=== PATIENT | female | born 1990 | race Caucasian/White ===

== ENCOUNTER → 2020-02-23 | Outpatient (CLI) | payer BC, SELFPAY | END | disposition home or self-care (01) | LOC: LABSPEC 13:50 | PROVIDERS: PCP Family Medicine; Referring Provider Family Medicine; Visit Provider Family Medicine | DX: Z20.828 Contact with and (suspected) exposure to other viral communicable diseases (principal); J06.9 Acute upper respiratory infection, unspecified | CPT/HCPCS: 87633; 87635; U0003 ==

== ENCOUNTER → 2020-09-29 10:04 | Outpatient (CLI) | payer OTHER, SELFPAY ==
[2020-09-29 12:06] LABS: Erythrocyte Sedimentation Rate 5 mm/hr (0-30); Hematocrit 42.9 % (37-47); Hemoglobin 14.1 g/dL (12.0-15.0); Mean Corp Hgb Conc 32.9 g/dL (32-36); Mean Corpuscular Hgb 30.5 pg (27.0-32.0); Mean Corpuscular Volume 92.7 fL (81-99); Mean Platelet Vol. 9.7 fl (6.2-12.0); Platelet Count 263 K/mm3 (150-450); RBC Distribution Width CV 11.9 % (11.6-14.6); RBC Distribution Width SD 40.6 fl (35.1-43.9); Red Blood Count 4.63 M/mm3 (4.2-5.4); White Blood Count 4.8 K/mm3 (4.4-11.0)
[2020-09-29 12:26] LABS: AST(SGOT) 26 U/L (15-37); Alanine Aminotransfer ALT/SGPT 38 U/L (13-56); Albumin, Serum 3.7 g/dL (3.2-5.0); Alkaline Phosphatase 51 U/L (45-117); Anion Gap 5 (5-15); BUN 17 mg/dL (7-18); BUN/Creat Ratio 19.4 RATIO (10-20); Calcium,Total 8.9 mg/dL (8.5-10.1); Chloride 105 mmol/L (98-107); Cholesterol 166 mg/dL (200); Creatinine, Serum 0.88 mg/dL (0.55-1.02); EST Glomerular Filtration Rate 79 mL/min (>60); Est Glom Filt Rate - Afr Amer 96 mL/min (>60); Globulin 3.7 g/dL (2.2-4.2); Glucose 87 mg/dL (74-106); High Density Lipoprotein 60 mg/dL; Potassium 4.2 mmol/L (3.5-5.1); Protein, Total 7.4 g/dL (6.4-8.2); Sodium Level 139 mmol/L (136-145); Thyroid Stim Hormone (TSH) 1.56 uIU/mL (0.358-3.74); Triglycerides 68 mg/dL; Very Low Density Lipoprotein 14 mg/dL (5-40)
[2020-09-29 12:30] LABS: Vitamin B12 361 pg/mL (211-911); Vitamin D,25 Hydroxy 40.3 ng/mL
== END ==
PROVIDERS: PCP Family Medicine; Referring Provider Family Medicine; Visit Provider Family Medicine
DX: R53.83 Other fatigue (principal); Z13.220 Encounter for screening for lipoid disorders
CPT/HCPCS: 36415; 80053; 80061; 82306; 82533; 82607; 84443; 85027; 85652

== ENCOUNTER → 2021-11-15 | Outpatient (CLI) | payer OTHER, SELFPAY ==
--- NOTE | 2021-11-15 11:43 | RAD_ITS ---
EXAM: XR CERVICAL SPINE, 6 OR MORE VIEWS CLINICAL INDICATION: NECK PAIN TECHNIQUE: Frontal, lateral, oblique and flexion/extension views of the cervical spine. This report was created using [employer] report generation technology. COMPARISON: None. FINDINGS: VERTEBRAE: Unremarkable. Preserved vertebral body height. No acute fracture. No spondylolisthesis. Preservation of the normal cervical lordosis. No significant facet arthropathy. DISC SPACES: Oblique views show bony neural foraminal narrowing at C5-6 bilaterally. SOFT TISSUES: Unremarkable. No prevertebral soft tissue widening. LUNG APICES: Clear. RAD/Cerv Spine Obl/Flex/Ext Comp IMPRESSION: No acute osseous abnormalities. There are degenerative changes with bony neural foraminal narrowing at C5-6. Electronically Signed: Adama Quiroga MD at 3:07 EDT ,
== END | disposition home or self-care (01) ==
LOC: MTRAD 11:41
PROVIDERS: PCP Family Medicine; Referring Provider Family Medicine; Visit Provider Family Medicine
DX: M48.02 Spinal stenosis, cervical region (principal); R51.9 Headache, unspecified
CPT/HCPCS: 72052

== ENCOUNTER → 2022-04-25 | Outpatient (CLI) | payer OTHER, SELFPAY ==
[2022-04-25 17:28] LABS: hCG Titer Quant., Serum 22 mIU/mL (1-3)
== END | disposition home or self-care (01) ==
LOC: LAB 15:59
PROVIDERS: PCP Family Medicine; Visit Provider Advanced Practice Midwife
DX: O20.0 Threatened abortion (principal); Z3A.00 Weeks of gestation of pregnancy not specified
CPT/HCPCS: 36415; 84702; 86900; 86901

== ENCOUNTER → 2022-04-27 | Outpatient (CLI) | payer OTHER, SELFPAY ==
[2022-04-27 10:07] LABS: hCG Titer Quant., Serum 41 mIU/mL (1-3)
== END | disposition home or self-care (01) ==
LOC: LAB 09:33
PROVIDERS: PCP Family Medicine; Referring Provider Advanced Practice Midwife; Visit Provider Advanced Practice Midwife
DX: O20.0 Threatened abortion (principal); Z3A.00 Weeks of gestation of pregnancy not specified
CPT/HCPCS: 36415; 84702

== ENCOUNTER → 2022-04-30 | Outpatient (CLI) | payer OTHER, SELFPAY ==
[2022-04-30 09:43] LABS: hCG Titer Quant., Serum 84 mIU/mL (1-3)
== END | disposition home or self-care (01) ==
LOC: LAB 08:02
PROVIDERS: PCP Family Medicine; Referring Provider Advanced Practice Midwife; Visit Provider Advanced Practice Midwife
DX: O20.0 Threatened abortion (principal); Z3A.00 Weeks of gestation of pregnancy not specified
CPT/HCPCS: 36415; 84702

== ENCOUNTER → 2022-05-02 | Outpatient (CLI) | payer OTHER, SELFPAY ==
[2022-05-02 10:46] LABS: hCG Titer Quant., Serum 95 mIU/mL (1-3)
== END | disposition home or self-care (01) ==
PROVIDERS: PCP Family Medicine; Visit Provider Advanced Practice Midwife
DX: O20.0 Threatened abortion (principal); Z3A.00 Weeks of gestation of pregnancy not specified
CPT/HCPCS: 36415; 84702

== ENCOUNTER → 2022-05-04 | Outpatient (CLI) | payer OTHER, SELFPAY ==
[2022-05-04 12:51] LABS: Absolute Neutrophil Count 6.1 X10^3/uL (2.0-7.7); Basophil# 0.04 X10^3/uL; Basophil% 0.4 % (0-1); Eosinophil# 0.21 X10^3/uL; Eosinophils% 2.3 % (0-5); Hematocrit 41.3 % (37-47); Hemoglobin 13.6 g/dL (12.0-15.0); Mean Corp Hgb Conc 32.9 g/dL (32-36); Mean Corpuscular Hgb 30.6 pg (27.0-32.0); Mean Corpuscular Volume 92.8 fL (81-99); Mean Platelet Vol. 9.4 fl (6.2-12.0); Monocyte# 0.85 X10^3/uL; Monocyte% 9.4 % (0-10); NRBC Flagged by Analyzer 0 % (0-5); Neutrophil # 6.09 X10^3/uL (2.7-7.7); Neutrophil % 67.6 % (47-70); Platelet Count 204 K/mm3 (150-450); RBC Distribution Width CV 12.1 % (11.6-14.6); RBC Distribution Width SD 41.2 fl (35.1-43.9); Red Blood Count 4.45 M/mm3 (4.2-5.4)
[2022-05-04 13:29] LABS: AST(SGOT) 18 U/L (15-37); Alanine Aminotransfer ALT/SGPT 25 U/L (13-56); Alkaline Phosphatase 61 U/L (45-117); Anion Gap 4 (5-15); BUN 11 mg/dL (7-18); BUN/Creat Ratio 12.9 RATIO (10-20); Bilirubin, Direct 0.17 mg/dL (0.00-0.30); Calcium,Total 9.2 mg/dL (8.5-10.1); Chloride 106 mmol/L (98-107); Creatinine, Serum 0.85 mg/dL (0.55-1.02); EST Glomerular Filtration Rate 81 mL/min (>60); Est Glom Filt Rate - Afr Amer 98 mL/min (>60); Globulin 3.8 g/dL (2.2-4.2); Glucose 95 mg/dL (74-106); Potassium 3.9 mmol/L (3.5-5.1); Protein, Total 7.8 g/dL (6.4-8.2); Sodium Level 138 mmol/L (136-145)
[2022-05-04 13:32] LABS: hCG Titer Quant., Serum 101 mIU/mL (1-3)
== END | disposition home or self-care (01) ==
LOC: LAB 12:28
PROVIDERS: PCP Family Medicine; Referring Provider Obstetrics & Gynecology; Visit Provider Obstetrics & Gynecology
DX: Z34.90 Encounter for supervision of normal pregnancy, unspecified, unspecified trimester (principal)
CPT/HCPCS: 36415; 80048; 80076; 84702; 85025

== ENCOUNTER 2022-05-14 09:25 | Outpatient (RCR) | payer OTHER, SELFPAY ==
[2022-05-07 12:05] LABS: hCG Titer Quant., Serum 107 mIU/mL (1-3)
[2022-05-11 10:32] LABS: hCG Titer Quant., Serum 36 mIU/mL (1-3)
[2022-05-14 10:57] LABS: hCG Titer Quant., Serum 5 mIU/mL (1-3)
== END 2022-05-14 18:00 | disposition home or self-care (01) ==
LOC: LAB 09:25
PROVIDERS: PCP Family Medicine; Visit Provider Obstetrics & Gynecology
DX: O09.90 Supervision of high risk pregnancy, unspecified, unspecified trimester (principal); Z3A.00 Weeks of gestation of pregnancy not specified
CPT/HCPCS: 36415; 84702

== ENCOUNTER → 2022-11-12 | Outpatient (CLI) | payer OTHER, SELFPAY ==
--- NOTE | 2022-11-12 14:12 | RAD_ITS ---
INDICATION: PAIN EXAMINATION/TECHNIQUE: X-RAY - XR Abdomen 1 View COMPARISON: None FINDINGS: BOWEL GAS PATTERN: Non-obstructive. No bowel or stomach distention. There is a paucity of bowel gas. FREE AIR: Not assessed on a single supine view. ORGANOMEGALY: Not seen. CALCIFICATIONS: No abnormal calcifications observed. LOWER CHEST: No acute pathology. BONES AND SOFT TISSUES: Mild lumbar levocurvature. RAD/Abdomen Single View IMPRESSION: Non-obstructive bowel gas pattern. Findings suggest constipation. Electronically Signed: Ion Anthony MD at 23:52 EDT ,
[2022-11-12 16:12] LABS: CRP < 2.90 mg/L (0.0-3.0)
[2022-11-14 15:13] LABS: Endomysial Antibody IgA Negative (Negative); Immunoglobulin A 283 mg/dL (87-352); t-Transglutaminase IgA <2 U/mL (0-3)
== END | disposition home or self-care (01) ==
PROVIDERS: PCP Family Medicine; Referring Provider Internal Medicine Gastroenterology; Visit Provider Internal Medicine Gastroenterology
DX: R10.9 Unspecified abdominal pain (principal)
CPT/HCPCS: 36415; 74018; 82784; 83516; 86140; 86255

== ENCOUNTER → 2022-11-13 | Outpatient (CLI) | payer OTHER, SELFPAY ==
[2022-11-16 14:10] LABS: Calprotectin, Stool <5 ug/g (0-120)
== END | disposition home or self-care (01) ==
LOC: MTLAB 11:09
PROVIDERS: PCP Family Medicine; Referring Provider Internal Medicine Gastroenterology; Visit Provider Internal Medicine Gastroenterology
DX: R10.9 Unspecified abdominal pain (principal)
CPT/HCPCS: 83993

== ENCOUNTER → 2023-01-16 | Outpatient (CLI) | payer OTHER, SELFPAY ==
--- NOTE | 2023-01-16 08:30 | MRI_ITS ---
HISTORY: Cervicalgia, neck pain, and migraines since [facility] 10/2021. TECHNIQUE: Multiplanar and multisequence MR images of the cervical spine were obtained without contrast. 180 images. COMPARISON: [place] [id number]. FINDINGS: VERTEBRAE: Vertebral body heights maintained. Degenerative bone marrow endplate changes of C5-6. VERTEBRAL ALIGNMENT: Mild straightening of the cervical lordosis without significant anterior or posterior subluxation. SPINAL CORD: Cervical cord signal and morphology within normal limits. SOFT TISSUES: No prevertebral fluid collection. INTERVERTEBRAL DISCS: C2-3, C3-4: No significant posterior disc protrusion, central canal stenosis, or foraminal narrowing. C4-5: Mild disc bulge resulting in minimal narrowing of the thecal sac. No significant foraminal narrowing. C5-6: Moderate posterior disc bulge osteophyte complex with uncovertebral and facet arthropathy resulting in ventral cord abutment, moderate central canal stenosis, and moderate bilateral foraminal narrowing. C6-7: Mild posterior disc protrusion resulting in minimal narrowing of the thecal sac. No significant foraminal narrowing. C7-T1: No significant posterior disc protrusion, central canal stenosis, or foraminal narrowing. MRI/Spine Cervical (Routine) IMPRESSION: Moderate degenerative disease of C5-6 resulting in mild abutment of the spinal cord, moderate spinal canal stenosis, and moderate bilateral foraminal narrowing. Mild disc bulges of C4-5 and C6-7 without significant spinal canal stenosis. Electronically Signed: Jil Capone MD at 15:19 EDT ,
== END | disposition home or self-care (01) ==
PROVIDERS: PCP Family Medicine; Referring Provider Family Medicine; Visit Provider Family Medicine
DX: M54.2 Cervicalgia (principal)
CPT/HCPCS: 72141

== ENCOUNTER 2023-01-29 09:30 | Outpatient (RCR) | payer OTHER, SELFPAY ==
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
== END 2023-01-29 19:00 | disposition home or self-care (01) ==
LOC: PT 09:30
PROVIDERS: PCP Family Medicine; Referring Provider Family Medicine; Visit Provider Family Medicine
DX: M54.12 Radiculopathy, cervical region (principal)
CPT/HCPCS: 97012; 97035; 97110; 97140; 97162

== ENCOUNTER 2023-04-23 17:33 | Observation (INO) | payer OTHER, SELFPAY ==
[2023-04-23 17:33] VITALS: BP 139/91; PULSE 68; RESP 16; TEMP 36.6; O2SAT 98; BMI 24.7
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
[2023-04-23 18:32] LABS: Absolute Lymphocyte Count 1.74 X10^3/uL (0.83-4.51); Absolute Neutrophil Count 4.4 X10^3/uL (2.0-7.7); Basophil# 0.03 X10^3/uL; Basophil% 0.5 % (0-1); Eosinophil# 0.06 X10^3/uL; Eosinophils% 0.9 % (0-5); Hematocrit 40.7 % (37-47); Hemoglobin 13.3 g/dL (12.0-15.0); Lymphocyte # 1.74 X10^3/ul (0.83-4.51); Lymphocyte % 26.2 % (19-41); Mean Corp Hgb Conc 32.7 g/dL (32-36); Mean Corpuscular Volume 91.7 fL (81-99); Mean Platelet Vol. 9.4 fl (6.2-12.0); Monocyte# 0.37 X10^3/uL; Monocyte% 5.6 % (0-10); NRBC Flagged by Analyzer 0 % (0-5); Neutrophil # 4.42 X10^3/uL (2.7-7.7); Neutrophil % 66.5 % (47-70); Platelet Count 244 K/mm3 (150-450); RBC Distribution Width CV 11.9 % (11.6-14.6); Red Blood Count 4.44 M/mm3 (4.2-5.4); White Blood Count 6.6 K/mm3 (4.4-11.0)
--- OUTSIDE RECORDS SUMMARY | 2023-04-23 18:43 | XMS RPT_ITS | CCD ---
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 10/25/2022 10/25/2023 1 1 Additional Source Comments INFORMATION SOURCE (unrecogn ized section and content) DATE CREATED AUTHOR AUTHOR'S ORGANIZ ATION 11/12/2021 [facility] ([place]) DATE CREATED AUTHOR AUTHOR'S ORGANIZ ATION 02/26/2023 [facility] ([place]) DATE CREATED AUTHOR AUTHOR'S ORGANIZ ATION 04/19/2023 [facility] Source Comments (unrecognize d section and content) In the event this informatio n is protected by the Federal Confidentiality of Alcohol and Drug Abuse Patient Records regulations: The Federal rules restrict any use of the information to criminally investigate or prosecute any alcohol or drug abuse patient.[facility] the event this information is protected by the Federal Confidentiality of Alcohol and Drug Abuse Patient Records regulations: The Federal rules restrict any use of the information to criminally investigate or prosecute any alcohol or drug abuse patient.[facility] the event this information is protected by the Federal Confidentiality of Alcohol and Drug Abuse Patient Records regulations: The Federal rules restrict any use of the information to criminally investigate or prosecute any alcohol or drug abuse patient.[facility] Hospital[facility] the event this information is protected by the Federal Confidentiality of Alcohol and Drug Abuse Patient Records regulations: The Federal rules restrict any use of the information to criminally investigate or prosecute any alcohol or drug abuse patient.[facility] HospitalIn the event this information is protected by the Federal Confidentiality of Alcohol and Drug Abuse Patient Records regulations: The Federal rules restrict any use of the information to criminally investigate or prosecute any alcohol or drug abuse patient.[facility] HospitalIn the event this information is protected by the Federal Confidentiality of Alcohol and Drug Abuse Patient Records regulations: The Federal rules restrict any use of the information to criminally investigate or prosecute any alcohol or drug abuse patient.[facility] HospitalIn the event this information is protected by the Federal Confidentiality of Alcohol and Drug Abuse Patient Records regulations: The Federal rules restrict any use of the information to criminally investigate or prosecute any alcohol or drug abuse patient.[facility] Hospital[facility] the event this information is protected by the Federal Confidentiality of Alcohol and Drug Abuse Patient Records regulations: The Federal rules restrict any use of the information to criminally investigate or prosecute any alcohol or drug abuse patient.[facility] Hospital[facility] the event this information is protected by the Federal Confidentiality of Alcohol and Drug Abuse Patient Records regulations: The Federal rules restrict any use of the information to criminally investigate or prosecute any alcohol or drug abuse patient.[facility] Hospital[facility] the event this information is protected by the Federal Confidentiality of Alcohol and Drug Abuse Patient Records regulations: The Federal rules restrict any use of the information to criminally investigate or prosecute any alcohol or drug abuse patient.[facility] HospitalIn the event this information is protected by the Federal Confidentiality of Alcohol and Drug Abuse Patient Records regulations: The Federal rules restrict any use of the information to criminally investigate or prosecute any alcohol or drug abuse patient.[facility] HospitalIn the event this information is protected by the Federal Confidentiality of Alcohol and Drug Abuse Patient Records regulations: The Federal rules restrict any use of the information to criminally investigate or prosecute any alcohol or drug abuse patient.[facility] HospitalIn the event this information is protected by the Federal Confidentiality of Alcohol and Drug Abuse Patient Records regulations: The Federal rules restrict any use of the information to criminally investigate or prosecute any alcohol or drug abuse patient.[facility] HospitalIn the event this information is protected by the Federal Confidentiality of Alcohol and Drug Abuse Patient Records regulations: The Federal rules restrict any use of the information to criminally investigate or prosecute any alcohol or drug abuse patient.[facility] HospitalIn the event this information is protected by the Federal Confidentiality of Alcohol and Drug Abuse Patient Records regulations: The Federal rules restrict any use of the information to criminally investigate or prosecute any alcohol or drug abuse patient.[facility] HospitalIn the event this information is protected by the Federal Confidentiality of Alcohol and Drug Abuse Patient Records regulations: The Federal rules restrict any use of the information to criminally investigate or prosecute any alcohol or drug abuse patient.[facility] HospitalIn the event this information is protected by the Federal Confidentiality of Alcohol and Drug Abuse Patient Records regulations: The Federal rules restrict any use of the information to criminally investigate or prosecute any alcohol or drug abuse patient.[facility] HospitalIn the event this information is protected by the Federal Confidentiality of Alcohol and Drug Abuse Patient Records regulations: The Federal rules restrict any use of the information to criminally investigate or prosecute any alcohol or drug abuse patient.[facility] HospitalIn the event this information is protected by the Federal Confidentiality of Alcohol and Drug Abuse Patient Records regulations: The Federal rules restrict any use of the information to criminally investigate or prosecute any alcohol or drug abuse patient.[facility] HospitalIn the event this information is protected by the Federal Confidentiality of Alcohol and Drug Abuse Patient Records regulations: The Federal rules restrict any use of the information to criminally investigate or prosecute any alcohol or drug abuse patient.[facility] HospitalIn the event this information is protected by the Federal Confidentiality of Alcohol and Drug Abuse Patient Records regulations: The Federal rules restrict any use of the information to criminally investigate or prosecute any alcohol or drug abuse patient.[facility] HospitalIn the event this information is protected by the Federal Confidentiality of Alcohol and Drug Abuse Patient Records regulations: The Federal rules restrict any use of the information to criminally investigate or prosecute any alcohol or drug abuse patient.[facility] HospitalIn the event this information is protected by the Federal Confidentiality of Alcohol and Drug Abuse Patient Records regulations: The Federal rules restrict any use of the information to criminally investigate or prosecute any alcohol or drug abuse patient.[facility] Care Teams (unrecognized sec tion and content) [employer] Calenderer Relationship Specialty Start Date End Date Ann Hooper MD [address] [facility] [place] [address] PCP - General Family Medicine 05/28/16 N[employer] Calenderer Relationship Specialty Start Date End Date Ann Hooper MD [address] [facility] [place] [address] PCP - General Family Medicine 05/28/16 N[employer] Calenderer Relationship Specialty Start Date End Date Ann Hooper MD [address] [facility] [place] [address] PCP - General Family Medicine 05/28/16 Narrow [employer]ric Calenderer Relationship Specialty Start Date End Date Ann Hooper MD [address] [facility] [address] PCP - General Family Medicine 05/28/16 Narrow [employer]ric Calenderer Relationship Specialty Start Date End Date Ann Hooper MD [address] [place] [address] PCP - General Family Medicine 05/28/16 N[employer] Calenderer Relationship Specialty Start Date End Date Ann Hooper MD [address] [place] [address] PCP - General Family Medicine 05/28/16 N[employer] Calenderer Relationship Specialty Start Date End Date Ann Hooper MD [address] [place] [address] PCP - General Family Medicine 05/28/16 N[employer]ric Calenderer Relationship Specialty Start Date End Date Ann Hooper MD [address] [place] [address] PCP - General Family Medicine 05/28/16 N[employer]ric Calenderer Relationship Specialty Start Date End Date Ann Hooper MD [address] [place] [address] PCP - General Family Medicine 05/28/16 Narrow [employer] Calenderer Relationship Specialty Start Date End Date Ann Hooper MD [address] [place] [address] PCP - General Family Medicine 05/28/16 N[employer] Calenderer Relationship Specialty Start Date End Date Ann Hooper MD [address] [place] [address] PCP - General Family Medicine 05/28/16 Narrow [employer]ric Calenderer Relationship Specialty Start Date End Date Ann Hooper MD [address] [place] [address] PCP - General Family Medicine 05/28/16 N[employer] Calenderer Relationship Specialty Start Date End Date Ann Hooper MD [address] [place] [address] PCP - General Family Medicine 05/28/16 N[employer] Calenderer Relationship Specialty Start Date End Date Ann Hooper MD [address] [place] [address] PCP - General Family Medicine 05/28/16 Simeon Tatum MD [address] [place] [address] Referring Anesthesiology 02/20/23 Narrow Fabric Calenderer Relationship Specialty Start Date End Date Ann Hooper MD [facility] [place] [address] PCP - General Family Medicine 05/28/16 Simeon Tatum MD [address] [place] [address] Referring Anesthesiology 02/20/23 Narrow Fabric Calenderer Relationship Specialty Start Date End Date Ann Hooper MD [address] [place] [address] PCP - General Family Medicine 05/28/16 Simeon Tatum MD [address] [place] [address] Referring Anesthesiology 02/20/23 Care Team (unrecognized sect ion and content) Care Team Personnel Name: ANN HOOPER MD Member Role: Primary Care Physician Address: Address: [facility] [address] [address]- Care Team Related Persons Name: EDIN URBANO Address: Home [address] 04/23 [address] Reason for Visit (unrecogniz ed section and content) Reason Comments Vaginal Bleeding Reason Comments TRAIN GATEMAN Ultrasound Reason Comments Lab Orders Reason Onset Date Comments Follow Up Methotrexate Injection 05/04/2022 Reason Comments Reason Onset Date Comments Methotrexate Injection 05/07/2022 Reason Comments Results Reason Comments Follow Up Reason Comments Medication Problem Reason Comments Menstrual Problem Reason Comments Family History Of Cancer Specialty Diagnoses / Procedures Referred By Priscila t Referred To Contact Diagnoses Family history of breast cancer Procedures CONSULT TO MEDICAL GENETICS - CANCER MEDICAL GENETICS COUNSELING EACH 30 MINUTES Lois Akers MD [address] [place] [address] [facility] [place] [address] Referral ID Status Reason Start Date Expiration Date V isits Requested Visits Authorized [id number] Closed PCP Requested Referral Auto-Generated Referral 10/25/2022 10/25/2023 1 1 Reason Comments Referral Request Reason Comments New Patient Headache FOR RECORDS PERTAINING TO PATIENTS WHO ARE OR HAVE BEEN ENROLLED IN A CHEMICAL DEPENDENCY/SUBSTANCEABUSE PROGRAM, SOME INFORMATION MAY BE OMITTED. This clinical summary was aggregated from multiple sources. Caution should be exercised in using it in the provision of clinical care. This summary normalizes information from multiple sources, and as a consequence, information in this document may materially change the coding, format and clinical context of patient data. In addition, data may be omitted in some cases. CLINICAL DECISIONS SHOULD BE BASED ON THE PRIMARY CLINICAL RECORDS. [employer] [facility]. provides no warranty or guarantee of the accuracy or completeness of information in this document.
[2023-04-23 19:01] LABS: Anion Gap 2 (5-15); BUN 13 mg/dL (7-18); BUN/Creat Ratio 11.5 RATIO (10-20); Chloride 108 mmol/L (98-107); Creatinine, Serum 1.13 mg/dL (0.55-1.02); EST Glomerular Filtration Rate 58 mL/min (>60); Est Glom Filt Rate - Afr Amer 71 mL/min (>60); Estimated Creatinine Clearance 62.53 ml/min; Glucose 98 mg/dL (74-106); Potassium 3.7 mmol/L (3.5-5.1); Sodium Level 140 mmol/L (136-145); Troponin-I HS 5 pg/mL (3.0-54.0)
[2023-04-23] MEDS: 0.9% Normal Saline (1000mL) 1,000 ML 999 ML IV (19:27)
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
--- OUTSIDE RECORDS SUMMARY | 2023-04-23 20:34 | XMS RPT_ITS | CCD ---
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 Amenorrhea Age at Menarche: Age at First : Age at Menopause: Clerical Support History Comments: Sexual Activity: No sexual activity [...] Level: 4 - Moderate Lois Lomeli MD [facility] 10-25-2022 History of Present illness Narrative Formatting of this note is different fro m the original. Wet End Tester offered: Patient declines. Aurelia Vogt is a [...] L0 SAB0 IAB0 Ectopic0 Multiple0 Live Births0 Clerical Support History LMP: 03/18/2022, Drug Induced Amenorrhea Age at Menarche: Age at First : Age at Menopause: Clerical Support History Comments: Sexual Activity: No sexual activity [...] Lois Lomeli MD documented in this encounter [facility] 10-24-2022 Miscellaneous Notes Formatting of this note [...] center prior to call being transferred to ne. Patient wanting to know if there is anything she needs to do prior to appointment tomorrow morning. Akua Flores RN documented in this encounter [facility] 05-25-2022 Miscellaneous Notes Formatting of this note might be differe nt from the original. Spoke with pt and results given and pt stated that she was able to brain picker the Nuva ring at no cost. Lisette Alamo LPN Attempted to contact patient but no answer and unable to leave a message as voicemail box is full. If patient call back please notify her that urine culture is negative for infection. Justina Dorado RN Patient is going to check [employer] for discount voucher and will contact office [...] that she went to the pharmacy to brain picker the Annovera and the cost is $1200.00. pt stated that she is not going to pay that and wanted to know what other options would you suggest. Please advise. Lisette Alamo LPN documented in this encounter [facility] 05-24-2022 Miscellaneous Notes Formatting of this note might be differe nt from the original. Done Bisi Seaman MD Patient not able to brain picker Annovera d/t cost. Patient wants to use the nuvaring continuously to avoid menses. Please send updated Rx to [facility] in [place]. documented in this encounter [facility] 05-22-2022 Note HNO ID: [id number] Author: Bisi Seaman MD Service: ? Author Type: Physician Type: Progress Notes Filed: 05/22/2022 2:35 PM Note Text: Aurelia Vogt is a 32 year old female who presents for problem visit. HPI: Patient presents with pelvic pain. She is concerned about complications from the ectopic . Also she would like some control. OB History No obstetric history on file. Clerical Support History LMP: 03/18/2022 Age at Menarche: Age at First : Age at Menopause: Clerical Support History Comments: Sexual Activity: No sexual activity [...] is at extremely low risk of any penitentiary complications from it. UA AND urine culture ordered Discussed R/B/A of control options and Rx annovera given - use reviewed Medical Decision Making: Problems: Low: 2+ self-limited or minor problems Data: Unique test(s) ordered: 3+ Risk: Moderate: Drug management Medical Decision Making Level: 4 - Moderate Bisi Seaman MD [facility] 05-22-2022 History of Present illness Narrative Formatting of this note is different fro m the original. Aurelia Vogt is a 32 year old female who presents for problem visit\. HPI: Patient presents with pelvic pain. She is concerned about complications from the ectopic . Also she would like some control. OB History No obstetric history on file. Clerical Support History LMP: 03/18/2022 Age at Menarche: Age at First : Age at Menopause: Clerical Support History Comments: Sexual Activity: No sexual activity [...] is at extremely low risk of any long term care social worker complications from it. UA & urine culture ordered Discussed R/B/A of control options and Rx annovera given - use reviewed Medical Decision Making: Problems: Low: 2+ self-limited or minor problems Data: Unique test(s) ordered: 3+ Risk: Moderate: Drug management Medical Decision Making Level: 4 - Moderate Bisi Seaman MD documented in this encounter [facility] 05-14-2022 Miscellaneous Notes Formatting of this note [...] Liam Lackey MD HCG Quant result from [facility] received. Lab drawn today, 05/14. Result is 5. Do you still want patient to repeat on Saturday? Justina Dorado RN Patient notified of results, verbalizes understanding of instructions. Patient prefers to have lab drawn at [facility]. Order form signed by RR and faxed. Patient will have repeat drawn on 05/18. Justina Dorado RN Please notify the patient her quant is down to 36. I would recommend a repeat HCG here or at [facility] on 05/18/22This is great news. Keep f/u on 05/22/22 as scheduled. Liam Lackey MD documented in this encounter [facility] 05-07-2022 Nurse Note MTX administered by Blu Lackey MD. Ethel Ryan RN assisted. documented in this encounter [facility] 05-07-2022 Note HNO ID: [id number] Author: Liam Lackey MD Service: ? Author Type: Physician Type: Progress Notes Filed: 05/07/2022 12:12 PM Note Text: [facility] ATTENDING PHYSICIAN METHOTREXATE COUNSELING NOTE The [...] days and 7 days. Liam Lackey MD [facility] METHOTREXATE INJECTION NOTE Procedure Date: May 07, 2022 Procedure: Methotrexate Injection Indication: Aurelia Vogt presents for Methotrexate injection for ectopic . [facility] ATTENDING PHYSICIAN METHOTREXATE COUNSELING NOTE completed by Liam Lackey MD. Patient's last menstrual period was 03/18/2022. Procedure Details: Methotrexate ordered by: Liam Lackey MD /Moisés Seaman MD Dose: 50mg/m2, BSA - There is no height or weight on file to calculate BSA., actual dose 87 mg Dose calculation confirmed by: Daphne Cooper [facility] and Liam Lackey MD UNIVERSAL PROTOCOL / [...] days and 7 days. Liam Lackey MD [facility] 05-07-2022 History of Present illness Narrative Formatting of this note is different fro m the original. [facility] ATTENDING PHYSICIAN METHOTREXATE COUNSELING NOTE The [...] days and 7 days. Liam Lackey MD [facility] METHOTREXATE INJECTION NOTE Procedure Date: May 07, 2022 Procedure: Methotrexate Injection Indication: Aurelia Vogt presents for Methotrexate injection for ectopic . [facility] ATTENDING PHYSICIAN METHOTREXATE COUNSELING NOTE completed by Liam Lackey MD. Patient's last menstrual period was 03/18/2022. Procedure Details: Methotrexate ordered by: Liam Lackey MD /Moisés Seaman MD Dose: 50mg/m2, BSA - There is no height or weight on file to calculate BSA., actual dose 87 mg Dose calculation confirmed by: Daphne Cooper [facility] and Liam Lackey MD UNIVERSAL PROTOCOL / [...] Liam Lackey MD documented in this encounter [facility] 05-07-2022 Instructions Liam Lackey MD - 05/07/2022 [...] of this medication more commonly develop with long term care social worker treatment, such as received by cancer patients. [...] in your urine documented in this encounter [facility] 05-04-2022 Note HNO ID: [id number] Author: Bisi Seaman MD Service: ? Author Type: Physician Type: Progress Notes Filed: 05/04/2022 4:50 PM Note Text: Aurelia Vogt is a 32 year old female who presents for early . HPI: Patient presents with early . She denies vaginal bleeding or pain today. OB History No obstetric history on file. Clerical Support History LMP: 03/18/2022 Age at Menarche: Age at First : Age at Menopause: Clerical Support History Comments: Sexual Activity: No sexual activity [...] Level: 4 - Moderate Bisi Seaman MD [facility] 05-04-2022 History of Present illness Narrative Formatting of this note is different fro m the original. Aurelia Vogt is a 32 year old female who presents for early . HPI: Patient presents with early . She denies vaginal bleeding or pain today. OB History No obstetric history on file. Clerical Support History LMP: 03/18/2022 Age at Menarche: Age at First : Age at Menopause: Clerical Support History Comments: Sexual Activity: No sexual activity [...] Bisi Seaman MD documented in this encounter [facility] 05-02-2022 Miscellaneous Notes Formatting of this note might be differe nt from the original. Patient called and notified of below. Appointment scheduled. Justina Dorado RN I would like the patient to have a sooner ultrasound then on the now since her pain is still present. I spoke to senior financial reporting accountant Brenda Holly and larry to work her [...] Will continue to monitor. Will send to production cost estimator provider. Thanks, Amanda Rosario APRN.CNM Received faxed Quant HCG from [facility]-95. Previous Quants listed: HCG Quantitative (no units) Date Value 04/30/2022 84 04/27/2022 41 04/25/2022 22 Order faxed to [facility] - patient will have done today. keep [...] doubled. Sydni Infante RN HCG quant from [facility] is 84. Report to JAC to review. [...] last visit. Hcg quant order faxed to [facility] Patient getting repeat hcg quant drawn at [facility] on 04/30/2022. Follow up appointment scheduled. Please approve ultrasound order. Serum hcG increased. Please have patient repeat hcg level 04/30/21. Follow up with provider next week with results. Review ectopic precautions. If increased pain to call over the weekend. Please assist in scheduling follow up ultrasound in 2 weeks as recommended. Thank you, Amanda Rosario APRN.CNM Today's HCG quant is back from [facility]. HCG went up to 41. Lab report to JAC. Sydni Infante RN Called and spoke with patient via phone. Discussed HCG level of 22. She will have repeat HCG completed tomorrow. Please keep note open for provider production cost estimator to review follow up HCG results with patient. Nya Farias APRN.CNM Received lab results from [facility]. 04/25/22 hcg quant 22 O positive blood type. Reports to CP. Patient to have 2nd quant done at [facility] on 04/27/21. Akua Flores RN Early OB seen in office for bleeding. Having STAT Type and Screen, STAT HCG on 04/25/22 and morning of 04/27/22 at [facility]. Please leave phone note open to watch for results from the hospital. Sydni Infante RN documented in this encounter [facility] 04-25-2022 Note HNO ID: [id number] Author: Nya Farias APRN.CNM Service: ? Author Type: Conference Service Coordinator Type: Progress Notes Filed: 04/25/2022 4:27 PM Note Text: Aurelia Vogt is a 32 year old who presents for problem visit of vaginal bleeding after positive test. LMP 03/18/22- missed March cycle and had positive home test. Possible gestational age 5w3d. Today started bleeding heavy like a period . Increased cramping and lower pelvic pain. Clerical Support History LMP: 03/18/2022 (Exact Date) Age at Menarche: Age at First : Age at Menopause: Clerical Support History Comments: Sexual Activity: No sexual activity [...] - Support provided - Patient sent to [facility] for STAT LABS - HCG QUAL UR B/O- POSITIVE TODAY - TYPE + SCREEN - STAT - Serum HCG STAT TODAY AND REPEAT SATURDAY - OB US - TODAY - Dr. Kumar notified and involved with plan of care - Will notify patient of results and any changes to plan of care Nya Farias APRN.DWAIN [facility] 04-25-2022 History of Present illness Narrative Formatting of this note is different fro m the original. Aurelia Vogt is a 32 year old who presents for problem visit of vaginal bleeding after positive test. LMP 03/18/22- missed March cycle and had positive home test. Possible gestational age 5w3d. Today started bleeding heavy like a period . Increased cramping and lower pelvic pain. Clerical Support History LMP: 03/18/2022 (Exact Date) Age at Menarche: Age at First : Age at Menopause: Clerical Support History Comments: Sexual Activity: No sexual activity [...] - Support provided - Patient sent to [facility] for STAT LABS - HCG QUAL UR B/O- POSITIVE TODAY - TYPE + SCREEN - STAT - Serum HCG STAT TODAY AND REPEAT SATURDAY - OB US - TODAY - Dr. Kumar notified and involved with plan of care - Will notify patient of results and any changes to plan of care Nya Farias APRN.CNM documented in this encounter [facility] 04-25-2022 Miscellaneous Notes Formatting of this note [...] Lisette Alamo LPN documented in this encounter [facility] 01-02-2021 History of Present illness Narrative DATE [...] told the patient to contact her on-call telephone answerer right away. Painful red eye could be a sign of uveitis. If she feels as if the eye is getting worse or is not getting better at all and/or if she has blurry vision to go to the ER. Leena Zamarripa MD [id number] [facility] File#: [id number] END OF DOCUMENT / CHANGE LOG FOLLOWS Last Edited By [employer]. Signed By Leena Zamarripa MD, Eleni MD #[email or web address] on 01/04/2021 08:01 ET on 01/04/2021 08:01 ET Revision Number - 2 ^^^ Verified/Reviewed by 01/04/[address] [facility] PATIENT NAME: AURELIA VOGT [address] [facility] [address] MEDICAL REC #: [id number] [place] [address] [place] [facility] documented in this encounter [facility] Evaluation + Plan note No data available for this section [facility] documented [facility] this [facility] Diagnosis Bleeding in early - Primary Unspecified hemorrhage in early , unspecified as to episode of care documented [facility] Diagnosis Threatened - Primary Threatened , unspecified as to episode of care documented [facility] Diagnosis Ectopic without intrauterine , unspecified location- Primary documented [facility] Diagnosis Early stage of - Primary state, incidental documented [facility]* Diagnosis of unknown anatomic location- Primary state, incidental Nonviable Ectopic without intrauterine , unspecified location documented [facility]* Diagnosis Vaginal bleeding affecting early documented [facility]* Diagnosis of unknown anatomic location state, incidental Ectopic without intrauterine , unspecified location Nonviable documented [facility]* Diagnosis Encounter for general adult medical examination with abnormal findings- Primary Unspecified general medical examination documented [facility] Diagnosis Threatened Threatened , unspecified as to episode of care documented [facility]* Diagnosis History of ectopic - Primary Personal history of other genital system and obstetric disorders Pelvic pain in female Unspecified symptom associated with female genital organs control counseling General counseling for initiation of other contraceptive measures documented [facility]* Diagnosis Breakthrough bleeding with NuvaRing- Primary Metrorrhagia Pelvic pain in female Unspecified symptom associated with female genital organs Family history of breast cancer Family history of malignant neoplasm of breast documented [facility]* Diagnosis Family history of breast cancer Family history of malignant neoplasm of breast documented [facility]* Diagnosis Chronic post-traumatic headache, not intractable- Primary Chronic post-traumatic headache Migraine without aura and without status migrainosus, not intractable Migraine without aura, without mention of intractable migraine without mention of status migrainosus Chronic daily headache Headache Cervicogenic headache Headache Headache, worsening Headache Right facial numbness Disturbance of skin sensation [facility] No data available for this section [facility] Progress note No data available for this section [facility] Reason for referral (narrative)* Diagnostic Procedure Only (Routine) - Closed Specialty Diagnoses / Procedures Referred By Contac t Referred To Contact [facility] Diagnoses Vaginal bleeding affecting early Procedures OBSTETRIC ULTRASOUND WHI US PREG UTERUS AFTER 1ST TRIMEST GESTATION Nya Farias APRN.CNM [address] [place] [address] [facility] [address] [place] [address] Referral ID Status Reason Start Date Expiration Date V isits Requested Visits Authorized [id number] Closed Auto-Generate d Referral 04/25/2022 04/25/2023 1 1 [facility] for referral (narrative)* Diagnostic Procedure Only (Routine) - Authorized Specialty Diagnoses / Procedures Referred By Contac t Referred To Contact [facility] Diagnoses Threatened Procedures OBSTETRIC ULTRASOUND WHI US PREG UTERUS AFTER 1ST TRIMEST GESTATION Lois Akers MD [address] [place] [address] [facility] [address] [place] [id number] Referral ID Status Reason Start Date Expiration Date Visits Requested Visits Authorized [id number] Authorized Auto-Generat ed Referral 04/27/2022 04/27/2023 1 1 [facility] for visit Narrative* Diagnostic Procedure Only (Routine) - Closed Specialty Diagnoses / Procedures Referred By Contac t Referred To Contact [facility] Diagnoses Vaginal bleeding affecting early Procedures OBSTETRIC ULTRASOUND WHI US PREG UTERUS AFTER 1ST TRIMEST GESTATION Nya Farias APRN.[facility] [address] [place] [address] [address] Referral ID Status Reason Start Date Expiration Date V isits Requested Visits Authorized [id number] Closed Auto-Generate d Referral 04/25/2022 04/25/2023 1 1 [facility] for visit Narrative* Diagnostic Procedure Only (Routine) - Closed Specialty Diagnoses / Procedures Referred By Contac t Referred To Contact [facility] Diagnoses Threatened Procedures OBSTETRIC ULTRASOUND WHI US PREG UTERUS AFTER 1ST TRIMEST GESTATION Lois Akers MD [address] [place] [address] [address] Referral ID Status Reason Start Date Expiration Date V isits Requested Visits Authorized [id number] Closed Auto-Generate d Referral 04/27/2022 04/27/2023 1 1 [facility] Summary Purpose Family History No Family History [...] W/O CONTRAST MATERIAL Renetta Quan MD [address] [id number] [facility] [place] [address] Referral ID Status Reason Start Date Expiration Date Visits Requested Visits Authorized [id number] Pending Review Auto-Generat ed Referral 04/10/2024 1 1 Specialty Diagnoses / Procedures Referred By Contac t Referred To Contact Diagnoses Chronic post-traumatic headache, not intractable Migraine without aura and without status migrainosus, not intractable Chronic daily headache Cervicogenic headache Procedures PROVIDER ORDERED FOLLOW UP OFFICE/OUTPATIENT NEW HIGH MDM 60-74 MINUTES Renetta Quan MD [address] [place] [address] Referral ID Status Reason Start Date Expiration Date Visits Requested Visits Authorized [id number] Pending Review PCP Requested Referral 06/12/2023 03/11/2024 1 1 Specialty Diagnoses / Procedures Referred By Priscila t Referred To Contact Diagnoses Family history of breast cancer Procedures CONSULT TO MEDICAL GENETICS - CANCER MEDICAL GENETICS COUNSELING EACH 30 MINUTES Lois Akesr MD [address] [place] [address] [place] [id number] Referral ID Status Reason Start Date Expiration Date Visits Requested Visits Authorized [id number] Authorized PCP Requested Referral Auto-Generate d Referral 10/25/2022 10/25/2023 1 1 Specialty Diagnoses / Procedures Referred By Priscila t Referred To Contact [facility] Diagnoses Pelvic pain in female Procedures PELVIC US WHI US PELVIC NONOBSTETRIC REAL-TIME IMAGE COMPLETE Lois Akers MD [address] [place] [address] [address] Referral ID Status Reason Start Date Expiration Date Visits Requested Visits Authorized [id number] Authorized Auto-Generat ed Referral 10/25/2022 10/25/2023 1 1 Additional Source Comments INFORMATION SOURCE (unrecogn ized section and content) DATE CREATED AUTHOR AUTHOR'S ORGANIZ ATION 11/12/2021 [facility] ([place]) DATE CREATED AUTHOR AUTHOR'S ORGANIZ ATION 02/26/2023 [facility] ([place]) DATE CREATED AUTHOR AUTHOR'S ORGANIZ ATION 04/19/2023 [facility] Source Comments (unrecognize d section and content) In the event this informatio n is protected by the Federal Confidentiality of Alcohol and Drug Abuse Patient Records regulations: The Federal rules restrict any use of the information to criminally investigate or prosecute any alcohol or drug abuse patient.[facility] the event this information is protected by the Federal Confidentiality of Alcohol and Drug Abuse Patient Records regulations: The Federal rules restrict any use of the information to criminally investigate or prosecute any alcohol or drug abuse patient.[facility] the event this information is protected by the Federal Confidentiality of Alcohol and Drug Abuse Patient Records regulations: The Federal rules restrict any use of the information to criminally investigate or prosecute any alcohol or drug abuse patient.[facility] the event this information is protected by the Federal Confidentiality of Alcohol and Drug Abuse Patient Records regulations: The Federal rules restrict any use of the information to criminally investigate or prosecute any alcohol or drug abuse patient.[facility] the event this information is protected by the Federal Confidentiality of Alcohol and Drug Abuse Patient Records regulations: The Federal rules restrict any use of the information to criminally investigate or prosecute any alcohol or drug abuse patient.[facility] the event this information is protected by the Federal Confidentiality of Alcohol and Drug Abuse Patient Records regulations: The Federal rules restrict any use of the information to criminally investigate or prosecute any alcohol or drug abuse patient.[facility] the event this information is protected by the Federal Confidentiality of Alcohol and Drug Abuse Patient Records regulations: The Federal rules restrict any use of the information to criminally investigate or prosecute any alcohol or drug abuse patient.[facility] the event this information is protected by the Federal Confidentiality of Alcohol and Drug Abuse Patient Records regulations: The Federal rules restrict any use of the information to criminally investigate or prosecute any alcohol or drug abuse patient.[facility] the event this information is protected by the Federal Confidentiality of Alcohol and Drug Abuse Patient Records regulations: The Federal rules restrict any use of the information to criminally investigate or prosecute any alcohol or drug abuse patient.[facility] the event this information is protected by the Federal Confidentiality of Alcohol and Drug Abuse Patient Records regulations: The Federal rules restrict any use of the information to criminally investigate or prosecute any alcohol or drug abuse patient.[facility] the event this information is protected by the Federal Confidentiality of Alcohol and Drug Abuse Patient Records regulations: The Federal rules restrict any use of the information to criminally investigate or prosecute any alcohol or drug abuse patient.[facility] the event this information is protected by the Federal Confidentiality of Alcohol and Drug Abuse Patient Records regulations: The Federal rules restrict any use of the information to criminally investigate or prosecute any alcohol or drug abuse patient.[facility]hillIn the event this information is protected by the Federal Confidentiality of Alcohol and Drug Abuse Patient Records regulations: The Federal rules restrict any use of the information to criminally investigate or prosecute any alcohol or drug abuse patient.[facility] the event this information is protected by the Federal Confidentiality of Alcohol and Drug Abuse Patient Records regulations: The Federal rules restrict any use of the information to criminally investigate or prosecute any alcohol or drug abuse patient.[facility]hillIn the event this information is protected by the Federal Confidentiality of Alcohol and Drug Abuse Patient Records regulations: The Federal rules restrict any use of the information to criminally investigate or prosecute any alcohol or drug abuse patient.[facility]hillIn the event this information is protected by the Federal Confidentiality of Alcohol and Drug Abuse Patient Records regulations: The Federal rules restrict any use of the information to criminally investigate or prosecute any alcohol or drug abuse patient.[facility]hillIn the event this information is protected by the Federal Confidentiality of Alcohol and Drug Abuse Patient Records regulations: The Federal rules restrict any use of the information to criminally investigate or prosecute any alcohol or drug abuse patient.[facility]hillIn the event this information is protected by the Federal Confidentiality of Alcohol and Drug Abuse Patient Records regulations: The Federal rules restrict any use of the information to criminally investigate or prosecute any alcohol or drug abuse patient.[facility]hillIn the event this information is protected by the Federal Confidentiality of Alcohol and Drug Abuse Patient Records regulations: The Federal rules restrict any use of the information to criminally investigate or prosecute any alcohol or drug abuse patient.[facility]hillIn the event this information is protected by the Federal Confidentiality of Alcohol and Drug Abuse Patient Records regulations: The Federal rules restrict any use of the information to criminally investigate or prosecute any alcohol or drug abuse patient.[facility]hillIn the event this information is protected by the Federal Confidentiality of Alcohol and Drug Abuse Patient Records regulations: The Federal rules restrict any use of the information to criminally investigate or prosecute any alcohol or drug abuse patient.[facility]In the event this information is protected by the Federal Confidentiality of Alcohol and Drug Abuse Patient Records regulations: The Federal rules restrict any use of the information to criminally investigate or prosecute any alcohol or drug abuse patient.[facility]hillIn the event this information is protected by the Federal Confidentiality of Alcohol and Drug Abuse Patient Records regulations: The Federal rules restrict any use of the information to criminally investigate or prosecute any alcohol or drug abuse patient.[facility] Care Teams (unrecognized sec tion and content) [employer] Relationship Specialty Start Date End Date Ann Hooper MD [address] [facility] [place] [address] PCP - General Family Medicine 05/28/16 [employer] Relationship Specialty Start Date End Date Ann Hooper MD [address] [facility] [place] [address] PCP - General Family Medicine 05/28/16 [employer] Relationship Specialty Start Date End Date Ann Hooper MD [address] [facility] [place] [address] PCP - General Family Medicine 05/28/16 [employer] Relationship Specialty Start Date End Date Ann Hooper MD [address] [facility] [place] [address] PCP - General Family Medicine 05/28/16 [employer] Relationship Specialty Start Date End Date Ann Hooper MD [address] [place] [address] PCP - General Family Medicine 05/28/16 [employer] Relationship Specialty Start Date End Date Ann Hooper MD [address] [place] [address] PCP - General Family Medicine 05/28/16 [employer] Relationship Specialty Start Date End Date Ann Hooper MD [address] [place] [address] PCP - General Family Medicine 05/28/16 [employer] Relationship Specialty Start Date End Date Ann Hooper MD [address] [place] [address] PCP - General Family Medicine 05/28/16 [employer] Relationship Specialty Start Date End Date Ann Hooper MD [address] [place] [address] PCP - General Family Medicine 05/28/16 [employer] Relationship Specialty Start Date End Date Ann Hooper MD [address] [place] [address] PCP - General Family Medicine 05/28/16 [employer] Relationship Specialty Start Date End Date Ann Hooper MD [address] [place] [address] PCP - General Family Medicine 05/28/16 [employer] Relationship Specialty Start Date End Date Ann Hooper MD [address] [place] [address] PCP - General Family Medicine 05/28/16 [employer] Relationship Specialty Start Date End Date Ann Hooper MD [address] [place] [address] PCP - General Family Medicine 05/28/16 [employer] Relationship Specialty Start Date End Date Ann Hooper MD [address] [place] [address] PCP - General Family Medicine 05/28/16 Simeon Tatum MD [address] [place] [address] Referring Anesthesiology 02/20/23 [employer] Relationship Specialty Start Date End Date Ann Hooper MD [facility] [place] [address] PCP - General Family Medicine 05/28/16 Simeon Tatum MD [address] [place] [address] Referring Anesthesiology 02/20/23 [employer] Relationship Specialty Start Date End Date Ann Hooper MD [address] [place] [address] PCP - General Family Medicine 05/28/16 Simeon Tatum MD [address] [place] [address] Referring Anesthesiology 02/20/23 Care Team (unrecognized sect ion and content) Care Team Personnel Name: ANN HOOPER MD Member Role: Primary Care Physician Address: Address: [facility] [address] [address]- Care Team Related Persons Name: EDIN URBANO Address: Home [address] 04/[address] Reason for Visit (unrecogniz ed section and content) Reason Comments Vaginal Bleeding 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 [facility]. provides no warranty or guarantee of the accuracy or completeness of information in this document.
[2023-04-23 20:48] VITALS: BMI 20.9
[2023-04-23 20:49] VITALS: BP 127/90; BP 136/66
--- NOTE | 2023-04-23 20:49 | CDU_ITS ---
Reason For Study: Recurrent syncope Rt. Velocities/BP Lt. Velocities/BP Prox CCA 81.5/16.3 cm/sec. Prox CCA 91.2/21.2 cm/sec. Mid CCA 71.1/17.3 cm/sec. Mid CCA 82.6/20 cm/sec. Dist CCA 66.4/12.6 cm/sec. Dist CCA 69.1/20 cm/sec. Prox ICA 70.2/21.1 cm/sec. Prox ICA 63/21.2 cm/sec. Mid ICA 59.8/23 cm/sec. Mid ICA 65.4/32.3 cm/sec. Dist ICA 98.6/45.8 cm/sec. Dist ICA 75.3/33.5 cm/sec. Rt. ICA/CCA = 1.39. Lt. ICA/CCA = 0.91. Prox ECA 76.8/7.8 cm/sec. Prox ECA 101.1/18.8 cm/sec. Rt. Vert. 38.4/12.6 cm/sec. Lt. Vert. 43.7/10.7 cm/sec. Right Extracranial There is intimal thickening but no significant atherosclerotic plaque noted in the right common carotid artery. There is intimal thickening but no significant atherosclerotic plaque noted in the right internal carotid artery. There is intimal thickening but no significant atherosclerotic plaque noted in the right external carotid artery. Antegrade flow is noted in the right vertebral artery. Left Extracranial There is intimal thickening but no significant atherosclerotic plaque noted in the left common carotid artery. There is intimal thickening but no significant atherosclerotic plaque noted in the left internal carotid artery. There is intimal thickening but no significant atherosclerotic plaque noted in the left external carotid artery. Antegrade flow is noted in the left vertebral artery. Procedure Carotid Duplex 58106. This is a Carotid Duplex examination using B-mode, color flow and specral Doppler. Exam performed portable in patient room. VL/Carotid Duplex Ultrasound Interpretation Summary Normal right extracranial internal carotid. Normal left extracranial internal carotid. Patent and antegrade vertebrals bilaterally. Ordering Physician: Benigno Brar Referring Physician: Da Hooper MD Performed By: Gretchen Ramirez RVT
[2023-04-23 21:02] VITALS: BP 142/91; PULSE 55; RESP 16; TEMP 36.7; O2SAT 98
[2023-04-23 21:04] LABS: Thyroid Stim Hormone (TSH) 1.27 uIU/mL (0.358-3.74)
[2023-04-23] MEDS: tiZANidine HCl 2 MG Tablet 4 MG PO (21:59)
[2023-04-23] MEDS: DULoxetine Hcl 60 MG Capsule PO (21:59)
[2023-04-24 04:00] VITALS: BP 113/62; PULSE 59; RESP 16; TEMP 36.1; O2SAT 100
[2023-04-24 08:28] VITALS: BP 114/68; PULSE 53; RESP 16; TEMP 36.8; O2SAT 98
[2023-04-24 08:43] VITALS: O2SAT 98
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
--- NOTE | 2023-04-24 10:59 | PHA.DC.MR.R ---
Pharmacy [place] Med Reconciliation Pharmacy Service has performed discharge medication reconciliation for this patient. The patient's discharge medication list was reviewed for discrepancies and discrepancies were resolved. Medications at Discharge Home Medications duloxetine 30 mg capsule,delayed release 60 mg PO QHS mental health 04/23/23 tizanidine 2 mg tablet 4 mg PO QHS muscle spasms 04/23/23
== END 2023-04-24 09:45 | disposition home or self-care (01) ==
LOC: ED 20:23 → PCU 20:30
PROVIDERS: Physician Assistant; Admitting Provider Internal Medicine; Emergency Provider Emergency Medicine; PCP Family Medicine
DX: R55 Syncope and collapse (principal); N28.9 Disorder of kidney and ureter, unspecified
CPT/HCPCS: 80048; 84443; 84484; 85025; 93005; 93880; 95819; 96523; 99221; 99283; J7030; A4216; G0378